=== PATIENT | female | born 1995 | race Caucasian/White ===

== ENCOUNTER 2018-04-10 20:11 | Emergency (ER) | payer SELFPAY ==
[~2018-04-10] VITALS: Ht 154.9 cm; Wt 52.2 kg
[2018-04-10] MEDS ORDERED: SODIUM CHLORIDE 0.9% 1000ML 1,000 ML IV STA ×2 (20:31→21:41)
[2018-04-10] MEDS ORDERED: MORPHINE SULFATE 4 MG/ML SYR IV STA (20:31)
[2018-04-10] MEDS ORDERED: MORPHINE SULFATE 2 MG/ML SYR ONE (20:42)
[2018-04-10] MEDS ORDERED: ONDANSETRON HCL 4 MG ORAL DISINTEGRATING TAB PO ONE (20:45)
[2018-04-10] MEDS ORDERED: DONNATAL/LIDOCAINE/MAALOX 30 ML SUSP PO SCH (20:45)
[2018-04-10 20:47] LABS: BASOPHILS # (AUTO) 0.1 (0.0-0.1); BASOPHILS % 0.6 % (0.0-1.0); EOSINOPHILS # (AUTO) 0.3 (0.0-0.4); EOSINOPHILS % 2.4 % (0.0-6.0); HEMATOCRIT 44.2 % (34.2-44.1); HEMOGLOBIN 14.7 g/dL (12.0-16.0); LYMPHOCYTES # (AUTO) 2.9 (1.0-3.2); LYMPHOCYTES % 20.9 % (18.0-39.1); MEAN CORPUSCULAR HEMOGLOBIN 30.6 pg (28-32); MEAN CORPUSCULAR HGB CONC 33.3 g/dL (31-35); MEAN CORPUSCULAR VOLUME 92.1 fL (81-99); MONOCYTES # (AUTO) 0.9 (0.2-0.8); MONOCYTES % 6.5 % (4.4-11.3); NEUTROPHILS # (AUTO) 9.7 (2.1-6.9); NEUTROPHILS % 69.2 % (38.7-80.0); PLATELET COUNT 314 x10e3/uL (140-360); RED CELL DISTRIBUTION WIDTH 12.4 % (11.7-14.4)
[2018-04-10 20:49] LABS: BILIRUBIN,URINE NEGATIVE (NEGATIVE); CLARITY,URINE CLEAR (CLEAR); COLOR,URINE YELLOW (YELLOW); KETONES,URINE NEGATIVE (NEGATIVE); LEUKOCYTE ESTERASE ,URINE NEGATIVE (NEGATIVE); NITRITE,URINE NEGATIVE (NEGATIVE); PREGNANCY TEST, URINE NEGATIVE (NEGATIVE); PROTEIN,URINE DIPSTICK NEGATIVE (NEGATIVE); URINE UROBILINOGEN 0.2 mg/dL (0.2 - 1)
[2018-04-10 21:01] LABS: BACTERIA,URINE MODERATE /HPF; EPITHELIAL CELLS,URINE MODERATE /LPF; MUCUS,URINE MODERATE (RARE); TRANSITIONAL EPI CELLS,URINE FEW; WBC,URINE (MAN) 0-5 /HPF (0-5)
[2018-04-10 21:09] LABS: ALANINE AMINOTRANSFERASE 6 IU/L (0-55); ALKALINE PHOSPHATASE 90 IU/L (40-150); AMYLASE 42 U/L (25-125); BLOOD UREA NITROGEN 6 mg/dL (7-26); BUN/CREATININE RATIO 7 (6-25); CALCIUM 10.3 mg/dL (8.4-10.2); CARBON DIOXIDE 26 mmol/L (22-29); CHLORIDE 102 mmol/L (98-107); CREATININE, SERUM 0.83 mg/dL (0.57-1.11); EST GLOMERULAR FILTRATION RATE > 60 ML/MIN (60-); GLUCOSE 85 mg/dL (74-118); LIPASE 21 U/L (8-78); SODIUM 140 mmol/L (136-145)
--- NOTE | 2018-04-10 21:37 | Diagnostic Imaging Report ---
EXAM: US GALLBLADDER INDICATION: Right flank pain COMPARISON: None TECHNIQUE: Transverse and longitudinal sonographic images of the right upper abdomen were obtained. FINDINGS: LIVER: 14 cm in the right midclavicular line. Normal echogenicity, normal contour, no masses. Main Portal Vein: Normal size with hepatopetal flow. GALLBLADDER: No stones, sludge, wall-thickening or pericholecystic fluid. Negative sonographic Mondragon's sign. BILE DUCTS: No intra nor extra-hepatic dilation. Common bile duct measures 0.3 cm. PANCREAS: Visualized portions are normal. RIGHT KIDNEY: 10.4 cm in length Echogenicity: Normal Collecting System: No hydronephrosis Stones: None Cyst/Mass: None FREE FLUID: None in the right upper quadrant of the abdomen IMPRESSION: Normal right upper quadrant ultrasound. Signed by: Dr. Megan Grewal M.D. on 04/10/2018 9:33 PM
[2018-04-10] MEDS ORDERED: KETOROLAC TROMETHAMINE 30 MG/ML VIAL IV STA (21:41)
--- NOTE | 2018-04-10 22:19 | Diagnostic Imaging Report ---
EXAM: CT ABDOMEN AND PELVIS without IV CONTRAST INDICATION: Right flank pain COMPARISON: None TECHNIQUE: The abdomen and pelvis were scanned using a multidetector helical scanner. Coronal and sagittal reformations were obtained. Routine protocol performed. IV Contrast: None Oral Contrast: None CTDIvol has been reviewed. It is below the limits set by the Radiation Protocol Committee (RPC). FINDINGS: LOWER THORAX: No consolidations LIVER: No masses BILIARY: Normal gallbladder. No ductal dilation. SPLEEN: No masses PANCREAS: No masses ADRENALS: No nodules RIGHT KIDNEY: No nephroureterolithiasis or hydronephrosis. LEFT KIDNEY: Punctate nonobstructing stone in the interpolar region of the left kidney. No hydronephrosis. GI TRACT: No wall thickening or obstruction. No evidence of appendicitis. VESSELS: Unremarkable PERITONEUM/RETROPERITONEUM: Trace free pelvic fluid. LYMPH NODES: No lymphadenopathy REPRODUCTIVE ORGANS: There is a poorly defined 7.4 x 5.4 cm right adnexal cystic mass the left ovary is also enlarged at approximately 5.7 x 3.5 cm. BLADDER: Normal SOFT TISSUES: Normal BONES: No suspicious bone lesions. IMPRESSION: Right adnexal cystic mass incompletely characterized on this noncontrast exam. A transabdominal and transvaginal pelvic ultrasound with duplex imaging is recommended to evaluate the ovaries and assess for possible ruptured cyst or torsion. Punctate nonobstructing left renal stone. No right nephroureterolithiasis. Signed by: Dr. Megan Grewal M.D. on 04/10/2018 10:15 PM
--- NOTE | 2018-04-10 22:19 | Diagnostic Imaging Report ---
EXAM: CHEST 2 VIEWS, PA and lateral INDICATION: Right flank pain COMPARISON: None FINDINGS: LINES/TUBES: None LUNGS: No consolidations or edema. PLEURA: No effusions or pneumothorax. HEART AND MEDIASTINUM: Normal size and contour. BONES AND SOFT TISSUES: No acute findings. IMPRESSION: No acute thoracic abnormality. Signed by: Dr. Megan Grewal M.D. on 04/10/2018 10:16 PM
== END 2018-04-10 22:57 | disposition home or self-care (01) ==
LOC: ER 20:11
DX: R10.11 Right upper quadrant pain (principal); R11.0 Nausea; N83.201 Unspecified ovarian cyst, right side